=== PATIENT | male | born 1935 | race Caucasian/White ===

== ENCOUNTER 2018-02-03 13:45 | Emergency (ER) | payer MEDICARE, BC ==
[~2018-02-03] VITALS: Ht 188 cm; Wt 106.4 kg
[~2018-02-03 13:45] MED LIST: NEXIUM 40MG40 MG PO
[2018-02-03 13:53] VITALS: TEMP 98.7
[2018-02-03] MEDS ORDERED: SYNTHROID0.075 MG/T PO (14:22)
[2018-02-03] MEDS ORDERED: FLOMAX 0.40.4 MG/CAP PO (14:22)
[2018-02-03] MEDS ORDERED: ATIVAN 0.50.5 MG/TAB PO (14:23)
[2018-02-03] MEDS ORDERED: CELEXA 20MG20 MG/TAB PO (14:23)
[2018-02-03 14:31] LABS: HEMATOCRIT 41.3 % (42.0-52.0); HEMOGLOBIN 14.1 g/dl (13.5-18.0); MEAN CELL VOLUME 97 fl (80.0-100.0); MEAN CORPUSCULAR HEMOGLOBIN 33 pg (27.0-31.0); MEAN CORPUSCULAR HGB CONC 34 g/dl (33.0-37.0); MEAN PLATELET VOLUME 9.3 fl (7.4-10.4); PLATELET COUNT 204 K/mm3 (130-400); RED BLOOD COUNT 4.24 M/mm3 (4.20-5.60)
[2018-02-03 14:53] LABS: ALBUMIN 3.5 gm/dL (3.5-5.0); BILIRUBIN,TOTAL 1.1 mg/dL (0.0-1.0); CREATININE, serum 0.98 mg/dL (0.66-1.25); POTASSIUM 3.9 mmol/L (3.4-5.0); TOTAL PROTEIN 7.1 gm/dL (6.4-8.2)
[2018-02-03 15:04] LABS: C-REACTIVE PROTEIN 15.5 mg/dL (0.0-0.9)
[2018-02-03 15:28] LABS: BAND 19 % (0-10); LYMPHOCYTE 13 % (20.0-51.0); NEUTROPHILS 59 % (42.0-75.2); PLATELET ESTIMATE NORMAL (NORMAL)
[2018-02-03 15:56] LABS: COLLECTION METHOD CLEAN CATCH
[2018-02-03 16:03] LABS: MUCOUS Present /lpf; PH 5 (5-8); SQUAMOUS EPITHELIAL 0-2 /hpf; URINE APPEARANCE Clear; URINE BACTERIA None Seen /hpf; URINE BILIRUBIN Negative (NEGATIVE); URINE BLOOD 1+ (NEGATIVE); URINE COLOR Yellow; URINE GLUCOSE Negative (NEGATIVE); URINE KETONE Negative (NEGATIVE); URINE LEUKOCYTE ESTERASE Negative (NEGATIVE); URINE NITRATE Negative (NEGATIVE); URINE PROTEIN(semi-quant) 1+ (NEGATIVE); URINE UROBILINOGEN Negative (NEGATIVE)
[2018-02-03] MEDS ORDERED: VANCOCIN H125 MG/CAP PO (17:15)
[2018-02-03 17:38] VITALS: BP 120/64; PULSE 82
== END 2018-02-03 17:42 | disposition home or self-care (01) ==
LOC: COL.ER 13:45
PROVIDERS: Emergency Medicine
DX: A04.72 Enterocolitis due to Clostridium difficile, not specified as recurrent (principal); K21.9 Gastro-esophageal reflux disease without esophagitis; N40.0 Benign prostatic hyperplasia without lower urinary tract symptoms; Z98.890 Other specified postprocedural states
CPT/HCPCS: J7030; Q9967

== ENCOUNTER 2018-02-25 07:33 | Emergency (ER) | payer MEDICARE, BC ==
[~2018-02-25] VITALS: Ht 180.3 cm; Wt 106.8 kg
[~2018-02-25 07:33] MED LIST changes: +ATIVAN 0.50.5 MG/TAB PO; +CELEXA 20MG20 MG/TAB PO; +FLOMAX 0.40.4 MG/CAP PO; +SYNTHROID0.075 MG/T PO; +VANCOCIN H125 MG/CAP PO
[2018-02-25 08:17] LABS: HEMATOCRIT 44.9 % (42.0-52.0); MEAN CELL VOLUME 97 fl (80.0-100.0); MEAN CORPUSCULAR HEMOGLOBIN 32 pg (27.0-31.0); MEAN CORPUSCULAR HGB CONC 33 g/dl (33.0-37.0); MEAN PLATELET VOLUME 9.5 fl (7.4-10.4); PLATELET COUNT 246 K/mm3 (130-400); RED BLOOD COUNT 4.63 M/mm3 (4.20-5.60); REDCELL DISTRIBUTION WIDTH-CV 13.7 % (11.5-14.5)
[2018-02-25 08:38] LABS: BILIRUBIN,TOTAL 1.4 mg/dL (0.0-1.0); C-REACTIVE PROTEIN 0.8 mg/dL (0.0-0.9); CALCIUM 9.3 mg/dL (8.4-10.2); CREATININE, serum 1.03 mg/dL (0.66-1.25); POTASSIUM 3.8 mmol/L (3.4-5.0); TOTAL PROTEIN 7.9 gm/dL (6.4-8.2)
[2018-02-25 08:52] LABS: BAND 1 % (0-10); EOSINOPHIL 1 % (0-4); LYMPHOCYTE 19 % (20.0-51.0); NEUTROPHILS 69 % (42.0-75.2); PLATELET ESTIMATE NORMAL (NORMAL)
[2018-02-25 09:26] LABS: COLLECTION METHOD CLEAN CATCH
[2018-02-25 09:31] LABS: MUCOUS Present /lpf; PH 6 (5-8); SQUAMOUS EPITHELIAL None Seen /hpf; URINE APPEARANCE Clear; URINE BACTERIA None Seen /hpf; URINE BILIRUBIN Negative (NEGATIVE); URINE BLOOD 1+ (NEGATIVE); URINE COLOR Yellow; URINE GLUCOSE Negative (NEGATIVE); URINE KETONE Negative (NEGATIVE); URINE LEUKOCYTE ESTERASE Negative (NEGATIVE); URINE NITRATE Negative (NEGATIVE); URINE PROTEIN(semi-quant) Negative (NEGATIVE); URINE UROBILINOGEN Negative (NEGATIVE)
[2018-02-25] MEDS ORDERED: CIPRO 500MG TA500 MG PO (09:52)
[2018-02-25 10:20] VITALS: BP 151/86; PULSE 68; TEMP 96.7
== END 2018-02-25 10:20 | disposition home or self-care (01) ==
LOC: COL.ER 07:33
PROVIDERS: Emergency Medicine
DX: B37.49 Other urogenital candidiasis (principal)

== ENCOUNTER 2018-02-26 04:40 | Inpatient (IN) | payer MEDICARE, BC ==
[~2018-02-26] VITALS: Ht 180.3 cm; Wt 103.6 kg
[2018-02-26] VITALS (21 sets, daily range): BP systolic 86–146; BP diastolic 47–74; PULSE 72–88; TEMP 97.1–98.8
[~2018-02-26 04:40] MED LIST changes: +CIPRO 500MG TA500 MG PO
[2018-02-26 05:09] LABS: ARTERIAL BLD GAS O2 SATURATION 93.5 % (92-100); ARTERIAL BLD GAS TCO2 CT 20.4; ARTERIAL BLOOD GAS BASE EXCESS -7.6 (-2-2); ARTERIAL BLOOD GAS HCO3 19.1 meq/L (22-26); ARTERIAL BLOOD GAS PO2 81.8 mmHg (80-100); ARTERIAL BLOOD GAS pH 7.27 (7.35-7.45)
[2018-02-26 05:15] LABS: HEMATOCRIT 44.9 % (42.0-52.0); MEAN CELL VOLUME 98 fl (80.0-100.0); MEAN CORPUSCULAR HEMOGLOBIN 33 pg (27.0-31.0); MEAN CORPUSCULAR HGB CONC 33 g/dl (33.0-37.0); MEAN PLATELET VOLUME 9.4 fl (7.4-10.4); PLATELET COUNT 221 K/mm3 (130-400); RED BLOOD COUNT 4.59 M/mm3 (4.20-5.60); REDCELL DISTRIBUTION WIDTH-CV 13.6 % (11.5-14.5)
[2018-02-26 05:31] LABS: ALANINE AMINOTRANSFERASE 23 U/L (21-72); ALBUMIN 3.7 gm/dL (3.5-5.0); ALCOHOL(ethanol),MEDICAL 268 mg/dL; ALKALINE PHOSPHATASE 96 U/L (50-136); ANION GAP 10 mmol/L (7-16); AST,SGOT 27 U/L (15-37); BILIRUBIN,TOTAL 1.1 mg/dL (0.0-1.0); BLOOD UREA NITROGEN 17 mg/dL (9-20); CALCIUM 8.4 mg/dL (8.4-10.2); CARBON DIOXIDE 21 mmol/L (22-30); CHLORIDE 106 mmol/L (98-107); CREATININE, serum 1.07 mg/dL (0.66-1.25); GLUCOSE 133 mg/dL (74-106); POTASSIUM 3.9 mmol/L (3.4-5.0); SODIUM 137 mmol/L (137-145); TOTAL PROTEIN 7.3 gm/dL (6.4-8.2)
[2018-02-26 05:32] LABS: ACETAMINOPHEN < 10 ug/mL (10-30); SALICYLATE < 1.0 mg/dL
[2018-02-26 05:35] LABS: INR 1.1 (0.8-3.0)
[2018-02-26 05:38] LABS: PARTIAL THROMBOPLASTIN TIME 31.1 SECONDS (26.0-37.0)
[2018-02-26 05:43] LABS: BAND 19 % (0-10); EOSINOPHIL 1 % (0-4); LYMPHOCYTE 16 % (20.0-51.0); NEUTROPHILS 49 % (42.0-75.2)
[2018-02-26 05:44] LABS: ANISOCYTOSIS 1+; PLATELET ESTIMATE NORMAL (NORMAL); POIKILOCYTOSIS 1+
[2018-02-26 05:45] LABS: TEAR DROP CELLS 1+
[2018-02-26 05:49] LABS: ARTERIAL BLD GAS O2 SATURATION 91.1 % (92-100); ARTERIAL BLD GAS TCO2 CT 18.7; ARTERIAL BLOOD GAS BASE EXCESS -7.9 (-2-2); ARTERIAL BLOOD GAS HCO3 17.6 meq/L (22-26); ARTERIAL BLOOD GAS PCO2 36.3 mmHg (35-45); ARTERIAL BLOOD GAS PO2 69.7 mmHg (80-100)
[2018-02-26 05:59] LABS: TRICYCLIC ANTIDEPRESS URINE NEGATIVE
--- NOTE | 2018-02-26 10:15 | NUR ---
Pt arrived to room 357 from ED. He is drowsy but arousable. He is oriented to his name and that he is in the hospital. He falls asleep quickly when trying to talk. When awake he is pleasant and cooperative. Pt has 2 IV sites, left and right hand. Both are free of complications. Resp. are even and unlabored on 2L O2 per oxymask. Cont. pulse ox applied, pt sats are 97-99% on 2L. Pt is a heavy 2x assist to the commode, able to urinate at this time. Medications/allergies/pharm reviewed with pt's significant other, Zoila, and nephew. Pt is now sleeping soundly, family at bedside. Suicide precautions in place. 1:[address]
--- NOTE | 2018-02-26 11:04 | NUR ---
Amortization Schedule Clerk here at this time. Family continues to be at bedside.
--- NOTE | 2018-02-26 11:33 | NUR ---
Pt is awake and alert, resting comforatbly, conversing with family. He remains calm and cooperative. Drinking water without difficulty.
--- NOTE | 2018-02-26 11:51 | NUR ---
Pt up walking with Eduardo, PT.
--- NOTE | 2018-02-26 12:14 | NUR ---
Pt taken off O2 to work with PT. Pt 95% afterwards, O2 left off at this time. Cont. pulse ox remains in place, sats between 93-95% on room air. Family at bedside.
--- NOTE | 2018-02-26 12:43 | NUR ---
Pt ate 100% of meal without diffculty.
--- NOTE | 2018-02-26 13:24 | NUR ---
Plan to return home with spouse as caregiver Zoila also DPOA. Met with family in room and at s. Family strongly decline facility placement. Would like home health services with [facility]. PT is reports to use a walker daily and hearing devices. Obtains RX from [facility], PCP is Dr. Alex. Denies any other DME. Denies any diff/w medications. Action: JACKELYN faxed referral to [facility] for continuity of care. JACKELYN will continue to follow if additional needs are identified.
--- NOTE | 2018-02-26 15:36 | NUR ---
Significant other, Zoila, left at this time. 1:1 sitter remains, pt states he wants to try to sleep. Pt remains on room air, sats remain in the low 90s. Bed alarm on.
--- NOTE | 2018-02-26 16:13 | NUR ---
Pt up to the restroom, voided without diffculty. Pt accidently pulled out saline lock to left hand with transfer, catheter tip intact. Pt repostioned back in bed. Water offered and accepted.
--- NOTE | 2018-02-26 17:30 | NUR ---
Pt to the restroom, repositioned back in bed. Pt then stating he is having pain at the "tip of my penis." Pt reports burning with urinating and continued burning after completetion. Pt given PRN tylenol but he states "you have got to do something else." Dr. Conner notified, order for pyridium obtained and given. Family at bedside.
--- NOTE | 2018-02-26 18:29 | NUR ---
Pt to restroom at this time, voided without difficulty. Pt states he is still having pain in his penis and when he urinates but it "might feel a little better."
--- NOTE | 2018-02-26 19:15 | NUR ---
Anahy DOBBINS called regarding pts pain 12/05 and has not slept for 3-4 days orders for Dilaudid and Melatonin-
--- NOTE | 2018-02-26 19:50 | NUR ---
Initial shift assessment done- family leaving for home at this time- has close friends neighbor who is staying with pt for awhile tonight. Patient is alert/oriented, very pleasant- states pain is 10/10, has not slept for 3-4 days- states pain is sharp/penis/scrotum-more of a deep pain. Lung sounds decreased throughout- denies any SOB. No edema. 02 sats 93% on room air. IV fluids of NS at 125cc/hr-after this bag completed will be INT. Drinking water/eating without problems- Assisted with urinal in bed- voided 150cc yellow urine. Safety precautions in place- this nurse at bedside per policy- pt observed at all times-
--- NOTE | 2018-02-26 20:08 | NUR ---
Kali barrera given for pain around 1920 pt states pain is easing up a "little", resting quietly in bed.
--- NOTE | 2018-02-26 20:45 | NUR ---
Neighbor has left now for the night- pt did void 100cc in the urinal with assist- lights off- door closed , pt resting quietly- continues with constsant observation- nurse in room with pt
--- NOTE | 2018-02-26 23:15 | NUR ---
Scarlett DOBBINS call regarding pt not sleeping for more than 30 minutes at a time- Dilaudid is helping "some" but still rates pain 10/10- order for Dilaudid dose to be increased-
--- NOTE | 2018-02-26 23:35 | NUR ---
Up to bathroom with walker and assist- somewhat unsteady on feet- voiding dark/orange colored urine. Back to bed- would like to sit at edge of bed for awhile-- given some strawberry ice cream per request.
[2018-02-27] VITALS (10 sets, daily range): BP systolic 122–139; BP diastolic 52–71; PULSE 71–88; TEMP 97.1–98.8
--- NOTE | 2018-02-27 00:02 | NUR ---
back to bed, Dilaudid IV given for pain---- pt sound asleep within 5min of pain meds-
--- NOTE | 2018-02-27 02:15 | NUR ---
Awake,wanting to sit at the edge of the bed- states he was dreaming, states he feels like he is "losing his mind" - tried to get pt to explain - Pt very [place] so some difficulty with comminicating-- states his thoughts are not "together"-- talked with pt for a good hour about how he is feling- talked alot about his physical issues that are upsetting to him-states the past 2 weeks have been hard, pain/ diarrhea/weakness/a couple falls/-- sates his mind has been 'cloudy"-encouragement given-
--- NOTE | 2018-02-27 03:00 | NUR ---
Helped up to bathroom with walker- slow but steady,, voiding frequent small amounts of urine--back to bed, sitting on edge of bed- states he has not slept for the past 3-4 nights-- pt glad he did get the past 2 hours of sleep
--- NOTE | 2018-02-27 03:55 | NUR ---
Back to bed- Dilaudid 1 mg iv given for pain- states the pain does go away for a short time but always " comes back"-- pt immediately fell asleep after the Dilaudid given
--- NOTE | 2018-02-27 06:28 | NUR ---
Pt has been sleeping since Dilaudid was given at 0400- has repositioned self in bed- turned on his side-- did wake for just a few minutes to take a drink of water- back to sleep.
[2018-02-27 07:27] LABS: CALCIUM 8.9 mg/dL (8.4-10.2); CREATININE, serum 0.93 mg/dL (0.66-1.25); POTASSIUM 4.1 mmol/L (3.4-5.0)
[2018-02-27 07:28] LABS: BASO % 0.3 % (0.0-2.0); EOS # 0.1 (0.0-0.7); EOS % 0.5 % (0-4.0); GRAN # 6.7 (1.4-6.5); HEMATOCRIT 42.2 % (42.0-52.0); HEMOGLOBIN 14.3 g/dl (13.5-18.0); LYMPH # 1.1 (1.2-3.4); LYMPH % 11.9 % (20.0-51.0); MEAN CELL VOLUME 97 fl (80.0-100.0); MEAN CORPUSCULAR HEMOGLOBIN 33 pg (27.0-31.0); MEAN CORPUSCULAR HGB CONC 34 g/dl (33.0-37.0); MONO # 1.2 (0.1-0.6); MONO % 13.3 % (1.7-9.3); PLATELET COUNT 235 K/mm3 (130-400); RED BLOOD COUNT 4.35 M/mm3 (4.20-5.60); REDCELL DISTRIBUTION WIDTH-CV 13.5 % (11.5-14.5)
--- NOTE | 2018-02-27 07:30 | NUR ---
Bedside report received from JAMES Villasenor. Patient is awake and alert at this time. Patient states he is having pain at a 10/10 at this time. Patient is assisted to bathroom by Jacklyn. Patient mood is positive. Will continue to monitor.
--- NOTE | 2018-02-27 08:09 | NUR ---
Patient assessment complete. Patient is alert and oriented at this time. Patient sitting at edge of bed. When asked if he is having any thoughts of harming himself patient states "I may be having thoughts like that" and "it's all messed up in there," gesturing at his head. Will continue to monitor.
--- NOTE | 2018-02-27 10:00 | NUR ---
Some patient tremors noted at rest in bilateral hands. Patient also has some difficulty walking, featuring a shuffling gait.
--- NOTE | 2018-02-27 11:15 | NUR ---
SW attended clinical rounds. Urology and psychiatry have been consulted. SW to continue to follow.
--- NOTE | 2018-02-27 11:27 | NUR ---
Initial visit; Patient and his thanked Drive In Waiter/Waitress for looking in on him and keeping him in her prayers.
--- NOTE | 2018-02-27 11:59 | NUR ---
Patient resting in bed. No acute changes. Patient affect is positive. Family friend is at the bedside. Patient ambulates in hallway with this nurse and PT. Will continue to monitor.
--- NOTE | 2018-02-27 17:39 | NUR ---
Patient resting in bed. Friends at bedside. Patient has eaten dinner. Patient talks and smiles with his company. Will continue to monitor.
--- NOTE | 2018-02-27 19:20 | NUR ---
Bedside report given to JAMES Goss.
--- NOTE | 2018-02-27 20:07 | NUR ---
Friend Angel called. Patient gave verbal consent to speak with Angel. Angel would like to know how patient is doing. Resting in bed at this time. Stated patient nickname is Buzz. States will call later to check on patient. Patient resting in bed at this time. Denies needs. Stat lock replaced. Call light in reach. Sitter Esthela SCHMIDT in room.
--- NOTE | 2018-02-27 21:06 | NUR ---
Resting in bed. Assessment complete. Lungs clear. Pulses strong. Reports 7/10 back pain at this time. Alert and orientated. Denies needs. Will provide PRN pain medication. Call light in reach. Sitter in room with patient.
--- NOTE | 2018-02-27 21:22 | NUR ---
Resting in bed. Repositioned to left side. Reports soreness on lower back coccxy area. Off buttom at this time. FLOTATION TENDER in room with patient.
[2018-02-28] VITALS (13 sets, daily range): BP systolic 128–159; BP diastolic 58–76; PULSE 72–83; TEMP 97.3–98.4
--- NOTE | 2018-02-28 01:25 | NUR ---
Awake requesting pain medication. Too early to give. Educated patient. Will wait til time due. DORMITORY KEEPER at bedside.
--- NOTE | 2018-02-28 01:28 | NUR ---
Provided PRN pain medication. Resting in bed. FIELD SUPPORT REP at bedside.
--- NOTE | 2018-02-28 04:37 | NUR ---
Resting in bed asleep. TOOL CLERK at bedside.
--- NOTE | 2018-02-28 05:23 | NUR ---
Awake in bed for vital signs. Denies needs. Calm. Alert and orientated. ELECTROCARDIOGRAPH OPERATOR at bedside.
--- NOTE | 2018-02-28 05:36 | NUR ---
CLAIMS SERVICE ADJUSTOR at bedside. Repositioned. Calm. Alert and orientated.
--- NOTE | 2018-02-28 06:09 | NUR ---
Reports back and groin pain with headache. Given PRN percocet. SUPERVISOR PAINT DEPARTMENT at bedside.
--- NOTE | 2018-02-28 06:30 | NUR ---
Uneventful night. Slept well throughout night. Angel, friend called this AM for update and to tell patient good morning. Will relay message. Asleep at this time. FEATHEREDGER AND REDUCER MACHINE at bedside.
--- NOTE | 2018-02-28 07:20 | NUR ---
Report given to JAMES Bhandari. Resting in bed watching television with Rupal at bedside. MEDICAL STAFF SPECIALIST sitting with patient in doorway.
--- NOTE | 2018-02-28 08:13 | NUR ---
Pt states no longer wishes to take own life. Milling Machine Tender notifed.
--- NOTE | 2018-02-28 09:00 | NUR ---
Additional Suicide Precautions initiated that were not in place upon arrival, dining services notified of only plastic utensils, all hazardous lines, tubes and cords removed from room. Sitter and girlfriend at bedside.
--- NOTE | 2018-02-28 15:34 | NUR ---
JACKELYN met with the patient and patient's DPOA-HC, Zoila, to discuss the Psychiatrist's recommendation of inpatient psych treatment. The patient and patient's DPOA-HC report that they would be agreeable to this plan. JACKELYN then discussed the inpatient psych treatment facilities around [place]. JACKELYN has faxed a referral to the [facility] Unit at [facility] in [place] and [facility]. Jenise, at the [facility], reports that they are interested in taking the patient and that she will follow up with JACKELYN on Sunday for an update. JACKELYN still awaiting [facility]'s screening and will continue to follow.
--- NOTE | 2018-02-28 18:22 | NUR ---
Air mattress provided for pt d/t discomfort with bed
--- NOTE | 2018-02-28 19:27 | NUR ---
Report received from JAMES Bhandari. Resting in recliner with visitors at bedside.
--- NOTE | 2018-02-28 19:28 | NUR ---
Assisted to bed by FOOD AND DRUG RESEARCH SCIENTIST. Visitor at bedside.
--- NOTE | 2018-02-28 20:06 | NUR ---
Resting in bed. SHINGLE SHEARING MACHINE OPERATOR at bedside. Assessment complete. Lungs clear. Alert and orientated. No edema noted. Groin red. All cords possible removed from room. Chau gown on. Denies needs. Denies pain. Call light in reach.
--- NOTE | 2018-02-28 22:30 | NUR ---
Earlier in shift patient noticed to have telemetry on. Educated sitting to closely watch patient until order received to remove. Spoke with DOROTHY Plummer okay to d/c telemetry. Telemetry removed. Pt alert and orientated. Resting in bed. PUBLIC HEALTH ENGINEER at bedside.
[2018-03-01] VITALS (44 sets, daily range): BP systolic 95–155; BP diastolic 58–90; PULSE 74–104; TEMP 97.3–98.5
--- NOTE | 2018-03-01 | NUR ---
Resting in bed. Sitter at bedside.
--- NOTE | 2018-03-01 01:00 | NUR ---
Assist patient upwards in bed. Denies needs. Offered water. Sitter at bedside.
--- NOTE | 2018-03-01 02:00 | NUR ---
Resting in bed asleep. Sitter at bedside.
--- NOTE | 2018-03-01 04:31 | NUR ---
Sitting with patient at this time. Resting in bed asleep.
--- NOTE | 2018-03-01 05:00 | NUR ---
Up to restroom for bowel movement and returned to bed. Zepeda emptied. Denies needs at this time. Sitter at bedside.
--- NOTE | 2018-03-01 05:30 | NUR ---
Resting in bed with Rupal, girlfriend at bedside. Morning cares provided by Rupal at patient preference. Denies needs. Staff at bedside.
--- NOTE | 2018-03-01 06:18 | NUR ---
Visitor at bedside, reading a morning prayer with patient. Sitter at bedside.
--- NOTE | 2018-03-01 06:21 | NUR ---
Uneventful night. Did well. Sitter at bedside throughout shift. Visitor Rupal at bedside, along with sitter at this time.
[2018-03-01 06:54] LABS: BASO % 0.3 % (0.0-2.0); EOS # 0.2 (0.0-0.7); EOS % 2.4 % (0-4.0); GRAN # 6.5 (1.4-6.5); HEMATOCRIT 42.3 % (42.0-52.0); HEMOGLOBIN 14.2 g/dl (13.5-18.0); LYMPH # 1.1 (1.2-3.4); LYMPH % 12.2 % (20.0-51.0); MEAN CELL VOLUME 97 fl (80.0-100.0); MEAN CORPUSCULAR HEMOGLOBIN 33 pg (27.0-31.0); MEAN CORPUSCULAR HGB CONC 34 g/dl (33.0-37.0); MEAN PLATELET VOLUME 9.8 fl (7.4-10.4); MONO # 0.9 (0.1-0.6); MONO % 9.7 % (1.7-9.3); PLATELET COUNT 217 K/mm3 (130-400); RED BLOOD COUNT 4.36 M/mm3 (4.20-5.60); REDCELL DISTRIBUTION WIDTH-CV 13.6 % (11.5-14.5)
[2018-03-01 07:08] LABS: CALCIUM 9.3 mg/dL (8.4-10.2); CREATININE, serum 0.89 mg/dL (0.66-1.25)
--- NOTE | 2018-03-01 07:38 | NUR ---
report from piyush RAMIREZ. at bedside. Kassandra SCHMIDT sitter at door.
--- NOTE | 2018-03-01 07:39 | NUR ---
pt sleeping at this time.
--- NOTE | 2018-03-01 10:28 | NUR ---
PT UP TO RECLINER. PT HAS BEEN NPO PLANNING ON TURP LATER TODAY WITH DR. STOUT. CONTINUES TO HAVE 1:1 CONTINUAL OBSERVATION. AT BEDSIDE WITH OTHER FAMLILY MEMBERS AT THIS TIME. THERAPY IN TO WORK WITH PATIENT THIS AM.
--- NOTE | 2018-03-01 11:51 | NUR ---
PT SITTING UP IN CHAIR VISITING WITH .
--- NOTE | 2018-03-01 13:57 | NUR ---
PT TO SURGERY PER BED WITH
--- NOTE | 2018-03-01 16:50 | NUR ---
PT TO ROOM 357 BY BED WITH REPORT FROM DYLAN @ 3005. PT SETTLED TO ROOM. PT DENIES SUICIDAL IDEATIONS. 3 DALILA SEGURA WITH CBI Renetta ZHU
--- NOTE | 2018-03-01 19:19 | NUR ---
Report received from Jake. Pt resting in bed comfortably alert and oriented. Pt c/o pain and agreed to take pain med. Call light in reach.
--- NOTE | 2018-03-01 20:11 | NUR ---
Pt c/o 11/05 pain and asked for pain med. Call light in reach. Pt's girlfriend at the bedside. She's planning to stay over night.
--- NOTE | 2018-03-01 20:41 | NUR ---
Sitter at the front door and pt's at the bedside. Pt resting in bed comfortably. Call light in reach.
--- NOTE | 2018-03-01 21:27 | NUR ---
Visit attempted and pt sleeping soundly in bed. Call light in reach. at the bedside.
--- NOTE | 2018-03-01 22:22 | NUR ---
Visit attempted and pt sleeping soundly in bed. Call light in reach.
--- NOTE | 2018-03-01 23:01 | NUR ---
Visit attempted and pt sleeping soundly in bed. Pt's sleeping in chair. Sitter watching pt at the front door. Call light in reach.
--- NOTE | 2018-03-01 23:50 | NUR ---
Visit attempted and pt sleeping soundly in bed. Call light in reach.
[2018-03-02] VITALS (54 sets, daily range): BP systolic 95–134; BP diastolic 52–79; PULSE 73–88; TEMP 97.5–98.6
--- NOTE | 2018-03-02 01:50 | NUR ---
Pt woke up and c/o pain in groin area. Call light in reach.
--- NOTE | 2018-03-02 02:43 | NUR ---
Visit attempted and pt sleeping soundly in bed. Call light in reach. Pt's sleeping in chair in rm. Sitter at the front door.
--- NOTE | 2018-03-02 06:09 | NUR ---
Pt awake alert and oriented. Pt denied pain. Pt's at the bedside. Call light in reach.
--- NOTE | 2018-03-02 08:55 | NUR ---
Pt is awake and A/Ox4, sitting up in bed. Sig. other at bedside. Pt does report pain to penis, rates pain a 8/10 on faces scale. Pt was given PRN percocet for this. IVF are infusing without difficulty. CBI infusing without difficult into johnson, clear yellow urine noted. Hygiene provided at this time. Reposistioned in bed.
[2018-03-02 09:01] LABS: BASO % 0.2 % (0.0-2.0); GRAN % 84.2 % (42.2-75.2); HEMATOCRIT 41.1 % (42.0-52.0); HEMOGLOBIN 13.5 g/dl (13.5-18.0); LYMPH # 0.8 (1.2-3.4); LYMPH % 6.9 % (20.0-51.0); MEAN CELL VOLUME 99 fl (80.0-100.0); MEAN CORPUSCULAR HEMOGLOBIN 33 pg (27.0-31.0); MEAN CORPUSCULAR HGB CONC 33 g/dl (33.0-37.0); MEAN PLATELET VOLUME 9.6 fl (7.4-10.4); MONO # 0.9 (0.1-0.6); MONO % 7.5 % (1.7-9.3); PLATELET COUNT 229 K/mm3 (130-400); RED BLOOD COUNT 4.14 M/mm3 (4.20-5.60); REDCELL DISTRIBUTION WIDTH-CV 13.9 % (11.5-14.5)
[2018-03-02 09:13] LABS: CALCIUM 8.9 mg/dL (8.4-10.2)
--- NOTE | 2018-03-02 09:18 | NUR ---
Pt up to chair with PT.
--- NOTE | 2018-03-02 10:39 | NUR ---
Pt is sleeping soundly in chair, friend resting on couch. CBI continues to run without difficulty. 1:1 sitter at bedside.
--- NOTE | 2018-03-02 11:38 | NUR ---
Pt is sitting up in chair. Denies any pain at this time. Visiting with family.
--- NOTE | 2018-03-02 18:16 | NUR ---
Pt is resting quietly in bed, attempting to sleep. CBI continues to run without difficulty. Partner left for home. 1:1 sitter at bedside.
[2018-03-03] VITALS (75 sets, daily range): BP systolic 106–136; BP diastolic 47–89; PULSE 66–81; TEMP 97.5–98.5
--- NOTE | 2018-03-03 04:41 | NUR ---
PT HAD REQUESTED A PAIN PILL AT HS TO ATTEMPT TO HELP HIM SLEEP. PT WAS UNABLE TO SLEEP ABOUT 2 HOURS AFTER HS MEDS AND REQUESTED SOMETHING TO HELP HIM SLEEP. PT RECIEVED A PRN AMBIAN. PT APPEARED TO HAVE SLEPT WELL THROUGH THE NOC. CBI INFUSING WELL WITHOUT ISSUES, URINE RETURN HAS BEEN CLEAR WITH SLIGHT YELLOW/ PINK COLORATION. WILL PRIME AND PULL THIS AM.
--- NOTE | 2018-03-03 06:00 | NUR ---
PT SEGURA WAS PRIMED AND PULLED. 6 CUPS FOR URINE ARE IN PLACE IN BATHROOM. URINAL AT BEDSIDE. BLADDER WAS FILLED WITH APPROX 200CC OF FLUID PRIOR TO PULLING. PT HAD MINIMAL BLEEDING FOR PROCEDURE, TOLERATED WELL. REMINDED PT TO VOID IN URINAL OR IN BATHROOM NOW THAT SEGURA WAS REMOVED. NO NOTED VOID AT THIS TIME. PT AWAKE AND DRINKING WATER. NO C/O PAIN OR NOTED N/V.
[2018-03-03 07:02] LABS: HEMATOCRIT 45.7 % (42.0-52.0); HEMOGLOBIN 14.8 g/dl (13.5-18.0); MEAN CELL VOLUME 101 fl (80.0-100.0); MEAN CORPUSCULAR HEMOGLOBIN 33 pg (27.0-31.0); MEAN CORPUSCULAR HGB CONC 32 g/dl (33.0-37.0); MEAN PLATELET VOLUME 9.4 fl (7.4-10.4); PLATELET COUNT 234 K/mm3 (130-400); RED BLOOD COUNT 4.53 M/mm3 (4.20-5.60); REDCELL DISTRIBUTION WIDTH-CV 14.1 % (11.5-14.5)
[2018-03-03 07:13] LABS: CALCIUM 9.2 mg/dL (8.4-10.2)
--- NOTE | 2018-03-03 08:26 | NUR ---
Assessment complete. Pt back to bed from bathroom, has voided twice since catheter discontinued, urine blood tinged. Pt incontinent of urine as well, bed and gown changed. Pt denies pain or discomfort at this time. IVF's infusing per orders through left wrist site without s/s of complications. PANTOGRAPH II ENGRAVER with pt. No needs reported. Call light in reach.
[2018-03-03 09:09] LABS: BAND 9 % (0-10); EOSINOPHIL 1 % (0-4); LYMPHOCYTE 23 % (20.0-51.0); NEUTROPHILS 58 % (42.0-75.2); PLATELET ESTIMATE NORMAL (NORMAL)
--- NOTE | 2018-03-03 09:21 | NUR ---
Report received from JAMES Wasserman. Pt resting in bed comfortably, but c/o soreness around groin area. Pt agreed to take pain med. Call light in reach.
--- NOTE | 2018-03-03 10:51 | NUR ---
Visit attempted and pt sleeping soundly in bed. Pt's girlfriend at the bedside. Call light in reach.
--- NOTE | 2018-03-03 12:22 | NUR ---
Pt awake and having lunch brought in by friends. Pt denied pain. Call light in reach.
--- NOTE | 2018-03-03 13:47 | NUR ---
Visit attempted and pt sleeping soundly in bed. Call light in reach.
--- NOTE | 2018-03-03 15:24 | NUR ---
Pt talking to pt's visitors in . Pt c/o soreness around groin area and agreed to take pain med. Call light in reach.
--- NOTE | 2018-03-03 18:10 | NUR ---
Visit attempted and pt sleeping soundly in bed. Call light in reach.
--- NOTE | 2018-03-03 19:11 | NUR ---
Report given to JAMES Mullins. Pt sleeping soundly in bed. Call light in reach.
--- NOTE | 2018-03-03 20:30 | NUR ---
Shift assessment complete. Pt resting in bed, awake, a&o, cooperative c cares. Pt reports continued pain/"soreness" to penis bárbara c voiding; PRN pain media developer per request. Pt denies any other c/o. INT patent. 1:1 sitter at bedside. Pt s further needs at this time. Call light in reach, will monitor.
[2018-03-04] VITALS (10 sets, daily range): BP systolic 116–156; BP diastolic 58–77; PULSE 67–91; TEMP 97.4–98.6
--- NOTE | 2018-03-04 07:44 | NUR ---
Pt resting in bed, condition unchanged. Pt observed by 1:1 staff all noc, pt had very few needs. Pain well controlled c PRN pain med. Pt voided several times, clear, pale yellow urine. Pt denies needs at this time. Call light in reach, bed alarm on, 1:1 staff at bedside. Report given to Di RAMIREZ to assume pt cares.
--- NOTE | 2018-03-04 07:53 | NUR ---
PT. IS RESTING IN BED AND SAYS HAVING NECK PAIN; ABLE TO PUT IN HAS ON HEARING AIDES W/SET-UP; HUNGRY AND MEAL HERE AND LITERACY SPECIALIST BROUGHT HOT CHOCOLATE; ORIENTED TO PLACE; DATE AND TIME BUT NOT UNDERSTANDING CANNOT WALK IN HALLS AT THIS TIME BUT WHEN P.T. ARRIVES
--- NOTE | 2018-03-04 08:05 | NUR ---
Sitting up in the bed eating breakfast at this time. No pain or needs reported. The call light is in place and AMI Ho is 1:1 at the bedside. The significant other is at the bedside.
[2018-03-04] MEDS ORDERED: ZOLOFT 50MG50 MG PO (08:25)
[2018-03-04] MEDS ORDERED: COLACE 100100 MG/CAP PO (08:25)
--- NOTE | 2018-03-04 08:58 | NUR ---
Judith, at [facility], reports that they are interested in the patient also. Judith requested updates. JACKELYN faxed and will continue to follow.
[2018-03-04] MEDS ORDERED: TYLENOL 325MG325 MG PO (09:25)
--- NOTE | 2018-03-04 09:28 | NUR ---
pt. is able to push self up in bed to better sitting position for meal; hungry and meal served; S/O at BS; Pt.is able to put in Hearing Aides, and feed himself with set-up and cues. Pt.is tolerating bedrest.
[2018-03-04] MEDS ORDERED: PERCOCET 325 MG1 TA2 PO (09:32)
[2018-03-04] MEDS ORDERED: FLORASTOR250 MG PO (09:35)
[2018-03-04] MEDS ORDERED: AMBIEN 5MG TABLE5 MG PO (09:35)
[2018-03-04] MEDS ORDERED: FOLIC ACID 40400 MCG PO (09:43)
[2018-03-04] MEDS ORDERED: THIAMINE 1100 MG/TAB PO (09:43)
--- NOTE | 2018-03-04 09:44 | NUR ---
Jenise, at [facility] [place], reports that they can accept the patient for tomorrow, 03/05. SW has informed the clinical team and the patient's family. SW also informed home housekeeper for secure transpot. SW to continue to follow.
--- NOTE | 2018-03-04 09:49 | NUR ---
PT. CONVERSES WELL W/STAFFING CLERK AT BS; ATTENTIVE AND POSITIVE.
--- NOTE | 2018-03-04 10:00 | NUR ---
DETERMINATION FOR PLACEMENT;PREFERED PLACEMENT IS [place] PER FAMILY. PT. NEEDS FREQUENT CUES AND CONVERSATION TO UNDERSTAND HIS CONDITION HAS IMPROVENTMENT BUT STILL NEEDS INPT. CARES MORE THAN CAN GET HERE.
--- NOTE | 2018-03-04 10:25 | NUR ---
PT. CRYING FOR SHORT TIME BUT BETTER WITH PT. REASSURANCE.
--- NOTE | 2018-03-04 10:30 | NUR ---
PT. COOPERATIVE AND BACK TO BED.
--- NOTE | 2018-03-04 10:49 | NUR ---
TOLERATED AMBULATION IN HALLS
--- NOTE | 2018-03-04 11:00 | NUR ---
PT. FELL TO SLEEP IN BED AFTER WALK.
--- NOTE | 2018-03-04 14:00 | NUR ---
pt. given warmed blanket;siderails up w/seizure precaution pads in place. Coating Mixer Tender at BS
--- NOTE | 2018-03-04 16:32 | NUR ---
No change throughout the day. No pain or needs reported. The girlfriend remains at the bedside for assistance with meals and some ADLs. AMI Ho remains 1:1 at the bedside.
--- NOTE | 2018-03-04 16:56 | NUR ---
pt. to and from br w/fww and multiple cues for direction and safety; SITKA even with hearing aides. Pericares done and WMP to neck; pt. resting comfortably; tipple engineer at BS. Meals ordered.
--- NOTE | 2018-03-04 17:33 | NUR ---
Patient verbalizes neck pain and stiffness. Offered heat pack and now requests PRN pain medication. Otherwise is enjoying a visit with his family.
--- NOTE | 2018-03-04 19:20 | NUR ---
Shift assessment complete. Pt resting in bed, awake, a&o, cooperative c cares. Pt continued c/o abd "soreness" as well as neck pain; provided c warm pack, will give PRN pain med when able. Pt denies other c/o. Continues to void clear yellow urine. Pt denies needs. Call light in reach; 1:1 staff at bedside. Will continue to monitor.
[2018-03-05 00:31] VITALS: BP 152/77; PULSE 81; TEMP 98
[2018-03-05 04:44] VITALS: BP 123/85; PULSE 75; TEMP 97.9
[2018-03-05 07:44] VITALS: BP 132/57; PULSE 83; TEMP 97.8
[2018-03-05 08:00] VITALS: BP 132/57; PULSE 83
--- NOTE | 2018-03-05 08:09 | NUR ---
Assessment completed, alert/oriented, vital sign stable, patient is pleasant and cooperative, he is sitting up in bed eating breakfast at this time, contineus to report some right sided neck pain, heat pack applied and a percocet given, he is scheduled to be transferred to [facility] unit at 0900 this morning, present in the room, patient and family deny other needs or concerns at this time
[2018-03-05 08:37] VITALS: BP 132/57; PULSE 83; TEMP 97.8
--- NOTE | 2018-03-05 08:58 | NUR ---
The patient is to discharge today, 03/05, to the [facility] Unit at [facility] in [place] for inpatient psych. Transportation was set for 0900, via secure transport. SW informed the patient, patient's DPOA-HC, and the N[facility] Unit. They were all in agreeance. JACKELYN also presented and explained the IM form to the patient's DPOA-HC, Zoila. The patient's DPOA-HC verbalized understanding, signed, and she was provided a copy. No additional needs at this time.
--- NOTE | 2018-03-05 09:36 | NUR ---
Patient being transferred to [facility] unit by [facility], present at time of discharge
[2018-04-19] MEDS ORDERED: STOOL SOFTENER100 M2 PO ×2 (09:14)
== END 2018-03-05 09:37 | DRG 987 ==
LOC: COL.ER 04:40 → MEDICAL 08:37
PROVIDERS: Emergency Medicine; Hospitalist; Nurse Practitioner Family; Urology; ADMIT Internal Medicine
PROC: 0VB08ZZ Excision of Prostate, Via Natural or Artificial Opening Endoscopic (ICD-10-PCS; principal; 2018-03-01 13:30)
DX: T51.0X2A Toxic effect of ethanol, intentional self-harm, initial encounter (principal); G92 Toxic encephalopathy; N41.0 Acute prostatitis; N13.8 Other obstructive and reflux uropathy; E87.2 Acidosis; T14.91XA Suicide attempt, initial encounter; Y90.8 Blood alcohol level of 240 mg/100 ml or more; G89.29 Other chronic pain; F06.31 Mood disorder due to known physiological condition with depressive features; N40.1 Benign prostatic hyperplasia with lower urinary tract symptoms; R33.8 Other retention of urine; R09.02 Hypoxemia
CPT/HCPCS: OP; 99223-AI; 99231-AI; 99232-AI; 99239; G0378; G8978-GP; G8979-GP; G8987-GO; G8988-GO; J0690; J1100; J1170; J2270; J2310; J2405; J2704; J3010; J3480; J7030

== ENCOUNTER 2018-04-16 22:00 | Inpatient (IN) | payer MEDICARE, BC ==
[~2018-04-16] VITALS: Ht 177.8 cm; Wt 102.3 kg
[~2018-04-16 22:00] MED LIST changes: -ABILIFY MYCITE2 MG PO; -CENTRUM SILVER1 TAB PO; -CULTURELLE IMM1 EACH PO; -DESYREL 50MG50 MG PO; -NATURE'S BLEND100 M2 PO
[2018-04-16 22:47] LABS: BASO # 0.1 (0.0-0.2); BASO % 0.7 % (0.0-2.0); EOS # 0.1 (0.0-0.7); EOS % 1.3 % (0-4.0); GRAN # 7.3 (1.4-6.5); GRAN % 69.9 % (42.2-75.2); HEMATOCRIT 43.7 % (42.0-52.0); HEMOGLOBIN 14.6 g/dl (13.5-18.0); LYMPH # 1.5 (1.2-3.4); LYMPH % 13.9 % (20.0-51.0); MEAN CELL VOLUME 94 fl (80.0-100.0); MEAN CORPUSCULAR HEMOGLOBIN 32 pg (27.0-31.0); MEAN CORPUSCULAR HGB CONC 33 g/dl (33.0-37.0); MEAN PLATELET VOLUME 9.9 fl (7.4-10.4); MONO # 1.4 (0.1-0.6); MONO % 13.6 % (1.7-9.3); PLATELET COUNT 260 K/mm3 (130-400); RED BLOOD COUNT 4.64 M/mm3 (4.20-5.60); REDCELL DISTRIBUTION WIDTH-CV 14.3 % (11.5-14.5)
[2018-04-16 22:50] LABS: COLLECTION METHOD CLEAN CATCH
[2018-04-16 22:57] LABS: ALANINE AMINOTRANSFERASE 60 U/L (21-72); ALKALINE PHOSPHATASE 128 U/L (50-136); ANION GAP 10 mmol/L (7-16); AST,SGOT 43 U/L (15-37); BLOOD UREA NITROGEN 14 mg/dL (9-20); CALCIUM 9.3 mg/dL (8.4-10.2); CARBON DIOXIDE 22 mmol/L (22-30); CHLORIDE 103 mmol/L (98-107); CREATININE, serum 0.93 mg/dL (0.66-1.25); GLUCOSE 123 mg/dL (74-106); POTASSIUM 3.9 mmol/L (3.4-5.0); SODIUM 136 mmol/L (137-145); TOTAL PROTEIN 8.3 gm/dL (6.4-8.2)
[2018-04-16 23:02] LABS: MUCOUS Present /lpf; PH 5 (5-8); SQUAMOUS EPITHELIAL None Seen /hpf; URINE APPEARANCE Cloudy; URINE BACTERIA None Seen /hpf; URINE BILIRUBIN Negative (NEGATIVE); URINE BLOOD 2+ (NEGATIVE); URINE COLOR Yellow; URINE GLUCOSE Negative (NEGATIVE); URINE KETONE Negative (NEGATIVE); URINE LEUKOCYTE ESTERASE 3+ (NEGATIVE); URINE NITRATE Negative (NEGATIVE); URINE PROTEIN(semi-quant) Negative (NEGATIVE); URINE RBC 20-50 /hpf; URINE UROBILINOGEN Negative (NEGATIVE)
[2018-04-16 23:03] LABS: ACETAMINOPHEN < 10 ug/mL (10-30); ALCOHOL(ethanol),MEDICAL < 10 mg/dL; SALICYLATE < 1.0 mg/dL
[2018-04-16 23:04] LABS: TRICYCLIC ANTIDEPRESS URINE NEGATIVE
[2018-04-16 23:08] LABS: TROPONIN-I < 0.012 ng/mL (0.000-0.035)
[2018-04-16] MEDS ORDERED: ABILIFY MYCITE2 MG PO (23:34)
[2018-04-16] MEDS ORDERED: CENTRUM SILVER1 TAB PO (23:36)
[2018-04-16] MEDS ORDERED: NATURE'S BLEND100 M2 PO (23:36)
[2018-04-16] MEDS ORDERED: DESYREL 50MG50 MG PO (23:38)
[2018-04-16] MEDS ORDERED: CULTURELLE IMM1 EACH PO (23:40)
[2018-04-17] VITALS (40 sets, daily range): BP systolic 109–144; BP diastolic 43–79; PULSE 57–88; TEMP 97.8–98.4
--- NOTE | 2018-04-17 01:50 | NUR ---
Pt arrived to room 354, transferred per stretcher by ED staff. Pt awake, a&o but very KLETSEL DEHE WINTUN. Denies pain or other c/o at this time. Pt long time partner et Rupal SANDERS, at bedside. Pt/partner oriented to room, unit policies et current POC. Questions invited et answered, both verbalize understanding. Pt denies needs. Call light in reach, will continue c admit process.
[2018-04-17 06:54] LABS: BASO # 0.1 (0.0-0.2); BASO % 0.9 % (0.0-2.0); EOS # 0.1 (0.0-0.7); EOS % 1.5 % (0-4.0); GRAN # 5.3 (1.4-6.5); GRAN % 65.6 % (42.2-75.2); HEMATOCRIT 39.6 % (42.0-52.0); HEMOGLOBIN 13.2 g/dl (13.5-18.0); LYMPH # 1.3 (1.2-3.4); LYMPH % 15.5 % (20.0-51.0); MEAN CELL VOLUME 94 fl (80.0-100.0); MEAN CORPUSCULAR HEMOGLOBIN 31 pg (27.0-31.0); MEAN CORPUSCULAR HGB CONC 33 g/dl (33.0-37.0); MEAN PLATELET VOLUME 10.4 fl (7.4-10.4); MONO # 1.3 (0.1-0.6); MONO % 15.9 % (1.7-9.3); PLATELET COUNT 265 K/mm3 (130-400); REDCELL DISTRIBUTION WIDTH-CV 14.3 % (11.5-14.5)
[2018-04-17 07:12] LABS: CALCIUM 8.9 mg/dL (8.4-10.2); CREATININE, serum 0.84 mg/dL (0.66-1.25); POTASSIUM 3.8 mmol/L (3.4-5.0)
--- NOTE | 2018-04-17 09:23 | NUR ---
Patient resting in bed with at bedside. She reports that patient is voiding better since start of antibiotics and IV fluids. He reports pain in lower groin area. Unable to rate secondary to not understanding. Patient is alert and oriented x 3. Skin hot/dry; flush in color. Lungs CTA with resp even and unlabored on room air. HR strong and regular. Abd rounded with bowel sounds x 4 quads. PPP. No pedal edema noted. Patient has reported his bottom is burning. Checked coccyx area no reddness or open areas noted. Groin area without any rash.
--- NOTE | 2018-04-17 13:23 | NUR ---
SW met with patient and significant other, Zoila ([phone]), about discharge plans. Patient lives at home with Zoila. His PCP is Dr Simon and he obtains prescriptions from [facility]. Zoila reports patient does not use home health services and he sometimes uses a walker for ambulation. Patient does have a DPOA and those forms are in EMR. SW addressed the reason for patient hospitalization. Zoila reports patient was admitted to the [facility] in [place] after his previous hospitalization in February and he spent 4 days and 3 nights there. Patient has not followed up with a therapist or counselor due to hard of hearing in a group therapy environment. Zoila reports patient would be better in a one on one setting. Patient reports he does not want to go back to the [facility] or any inpatient psychiatric facility. Zoila and patient report that if patient's pain was under control, patient would feel better. SW will continue to follow and assist with discharge needs.
--- NOTE | 2018-04-17 21:10 | NUR ---
Patient assessed at this time. Denies having pain and discomfort. Hard of hearing. Voices no needs or concerns at this time. NS running at 125 ml/hr to right forearm.
--- NOTE | 2018-04-18 02:07 | NUR ---
Patient assisted to the bathroom with one assist with use of walker. Denied having pain and discomfort. NS running at 125 ml/hr to IV site on right forearm. Continues on Rocephin for UTI per orders. No adverse effects to antibiotic treatmen noted at this time, such as rash, vomiting, and diarrhea. Waiting on urine culture. Resting in bed with eyes closed at this time. Call light is within reach.
[2018-04-18 04:29] VITALS: BP 156/81; PULSE 83; TEMP 97.2
--- NOTE | 2018-04-18 06:34 | NUR ---
Patient woke up around 0530 with increased confusion. Assisted to the bathroom. Kept stating that something was going to happen. This nurse talked with patient for about 30 minutes. Stated that he felt like his significant other was leaving him because he is "too hard to handle." Patient very worried that this nurse would say something and get him in trouble. Asked patient why he thought his significant other would leave him, and patient stated that he had a dream about it. Talked with patient about the last time his significant other was here at the hospital and asked if she treated him any differently. Patient stated that he did not notice any change, that she gave him a hug and kiss before she left, and didn't act any differently. This nurse tried to reassure patient, but keeps stating that he needs to leave. Patient laying in bed at this time. Door open so staff can watch patient. Bed alarm is on.
[2018-04-18 07:33] LABS: BASO # 0.1 (0.0-0.2); BASO % 0.7 % (0.0-2.0); EOS # 0.1 (0.0-0.7); EOS % 1.3 % (0-4.0); GRAN # 6.2 (1.4-6.5); GRAN % 69.2 % (42.2-75.2); HEMATOCRIT 42.2 % (42.0-52.0); HEMOGLOBIN 14.1 g/dl (13.5-18.0); LYMPH # 1.2 (1.2-3.4); LYMPH % 13.8 % (20.0-51.0); MEAN CELL VOLUME 94 fl (80.0-100.0); MEAN CORPUSCULAR HEMOGLOBIN 31 pg (27.0-31.0); MEAN CORPUSCULAR HGB CONC 33 g/dl (33.0-37.0); MEAN PLATELET VOLUME 10.2 fl (7.4-10.4); MONO # 1.3 (0.1-0.6); MONO % 14.6 % (1.7-9.3); PLATELET COUNT 255 K/mm3 (130-400); REDCELL DISTRIBUTION WIDTH-CV 14.5 % (11.5-14.5)
[2018-04-18 07:45] LABS: CALCIUM 9.2 mg/dL (8.4-10.2); CREATININE, serum 0.78 mg/dL (0.66-1.25); POTASSIUM 3.9 mmol/L (3.4-5.0)
[2018-04-18 08:17] VITALS: BP 116/77; PULSE 85; TEMP 98.2
--- NOTE | 2018-04-18 09:00 | NUR ---
Patient assessment completed. Patient is confused and worried about his family. Reassured patient until family arrived at bedside. Laying in bed with NS running at 125mL/hr to IV on R forearm. Patient complains of pain in back and groin area and is continuously grabbing back and groin. No redness or irritation noted, patient refused heat or ice pack. Repositioned patient. Ordering lunch with family, no further needs at this time. Call light within reach, bed alarm on.
--- NOTE | 2018-04-18 10:07 | NUR ---
First visit from the power systems engineer. No needs right now.
--- NOTE | 2018-04-18 11:30 | NUR ---
Pt alert and oriented. Pt spouse at bedside. Pt denies pain or SOB. Pt IV patent and no redness or infiltration noted. Pt assessment completed. Pt has not had any suicidal thoughts reported. Pt converses pleasantly. Pt has call light in reach and denies needs.
[2018-04-18 12:00] VITALS: BP 116/61; PULSE 83; TEMP 98
--- NOTE | 2018-04-18 13:58 | NUR ---
[facility] nurse was assisted with [phone] patient care by [employer] student María Martin and [employer] instructor Tash Goddard RN-.
[2018-04-18 15:46] VITALS: BP 119/54; PULSE 94; TEMP 97.8
--- NOTE | 2018-04-18 19:28 | NUR ---
Pt alert and oriented. Pt spouse reports pt has had some hallucinations of seeing numbers on the floor and wall and masterbation and wanting affection with . Pt's concerned meds may need to be adjusted. Information given to Krysta in report and will notify hospitalist. Pt denies pain or SOB. Pt remains on fall risk precautions and plans to stay the night. Pt has call light in reach and denies needs at this time.
[2018-04-18 20:00] VITALS: BP 133/79; PULSE 79; TEMP 97.3
--- NOTE | 2018-04-18 22:40 | NUR ---
Patient assessed. Denies having pain and discomfort. Assisted to the bathroom. Used walker. Gait unsteady. Significant other is at bedside and planning on staying the night. Patient has been having intermittent confusion, but easily redirected. Significant other reports he has had some visual hallucinations earlier today, but none so far this shift. Denies having burning, pain, and discomfort with urination. Urine is clear and yellow.
[2018-04-19 01:32] VITALS: BP 123/62; PULSE 80; TEMP 98.6
--- NOTE | 2018-04-19 02:38 | NUR ---
Patient resting in bed with eyes closed. NS running at 75 ml/hr to IV site on right FA. Significant other continues to be at bedside. Call light is within reach.
[2018-04-19 03:34] VITALS: BP 118/73; PULSE 79; TEMP 98
--- NOTE | 2018-04-19 07:08 | NUR ---
When patient was woken up around 0530 to go to the bathroom, patient ambulated well with this nurse. Urinated clear yellow urine. Denied having burning, pain, and discomfort with urination. Afterwards, patient kept stating that he was sorry for "wetting the bed." Patient reassured that he did not have an accident and that the bed and he were dry, and that he got to the bathroom in time. Patient continued to repeat that he was sorry and that he was going to we the bed. Assisted back to the bathroom to see if he still had to urinate, but no urine output at that time. Significant other made the comment that he was affraid that he was getting prostate cancer, and that his brother had prostate cancer. Patient was then making the comment that he felt like he was "being punished." This nurse and significant other reassured patient. Requested to lay back down and assisted back to bed. Denied having pain and discomfort, and any other needs at that time. Resting in bed with eyes closed at this time. Significant other remains at bedside. NS continues to run at 75 ml/hr to right forearm.
[2018-04-19 07:33] LABS: BASO # 0.1 (0.0-0.2); BASO % 1.1 % (0.0-2.0); EOS # 0.3 (0.0-0.7); EOS % 3.7 % (0-4.0); GRAN # 4.9 (1.4-6.5); GRAN % 60.2 % (42.2-75.2); HEMATOCRIT 39.3 % (42.0-52.0); HEMOGLOBIN 12.8 g/dl (13.5-18.0); LYMPH # 1.5 (1.2-3.4); LYMPH % 18.4 % (20.0-51.0); MEAN CELL VOLUME 96 fl (80.0-100.0); MEAN CORPUSCULAR HEMOGLOBIN 31 pg (27.0-31.0); MEAN CORPUSCULAR HGB CONC 33 g/dl (33.0-37.0); MEAN PLATELET VOLUME 10.2 fl (7.4-10.4); MONO # 1.3 (0.1-0.6); MONO % 15.9 % (1.7-9.3); PLATELET COUNT 242 K/mm3 (130-400); REDCELL DISTRIBUTION WIDTH-CV 14.8 % (11.5-14.5)
--- NOTE | 2018-04-19 07:33 | NUR ---
Patient is resting in bed, eyes are closed, signifigant other is at bedside. Off going staff reports that patient has increased confusion when woken from sleep. Will allow patient to wake independently. Call light is within reach.
[2018-04-19 07:49] LABS: CREATININE, serum 0.91 mg/dL (0.66-1.25); POTASSIUM 3.9 mmol/L (3.4-5.0)
[2018-04-19 08:00] VITALS: BP 118/64; PULSE 84; TEMP 97
--- NOTE | 2018-04-19 08:41 | NUR ---
Patient is awake, assisted to bathroom. Resistant to getting back to bed and is slightly agitated. Susanna rodriguez spoke with this nurse regarding concerns she had from last night and today. She reports that last night he was experiencing visual disturbances such as seeing numbers on the floor and requesting for her to go look at the numbers herself. She stated that he was paranoid about wetting the bed and he was going to be in trouble for doing so when in fact he was not incontinent and bed was dry. He fears he has prostate cance which susanna rodriguez has reported this was nothing new. She said that since his last hospitalization he has not wanting to be intimate with her and last night he was "nudging" her breast and touching himself. She reports that a day or so prior to entering the hospital he was started on abilify and states the behaviors have manifested since then. Requests to hold off on abilify for this morning until provider is seen.
[2018-04-19] MEDS ORDERED: FLOMAX 0.40.4 MG/CAP PO (09:13)
[2018-04-19] MEDS ORDERED: ZOLOFT 100MG100 MG PO (09:14)
[2018-04-19] MEDS ORDERED: MIRALAX PA17 GM/Dose PO (09:14)
[2018-04-19] MEDS ORDERED: STOOL SOFTENER100 M2 PO (09:14)
--- NOTE | 2018-04-19 09:48 | NUR ---
JACKELYN met with patient's significant other, Rupal, about patient discharging today. Rupal reports she is interested in home health nursing to help out a few times a week with his care. JACKELYN reported she can send a referral. Rupal chose [facility]. JACKELYN contacted Amaya with [facility] and faxed a referral.
--- NOTE | 2018-04-19 13:05 | NUR ---
JACKELYN faxed discharge orders to [facility]. Patient will be seen tomorrow.
--- NOTE | 2018-04-19 13:41 | NUR ---
Primary nurse was assisted with [phone] patient care by [employer] student María Martin and [employer] instructor Tash Goddard RN-.
== END 2018-04-19 13:20 | disposition home health service (06) | DRG 885 ==
LOC: COL.ER 22:00 → MEDICAL 04-17 00:42
PROVIDERS: Nurse Practitioner; Nurse Practitioner Family; Physician Assistant; ADMIT Hospitalist
DX: F33.1 Major depressive disorder, recurrent, moderate (principal); F05 Delirium due to known physiological condition; R45.851 Suicidal ideations; G93.40 Encephalopathy, unspecified; F03.90 Unspecified dementia, unspecified severity, without behavioral disturbance, psychotic disturbance, mood disturbance, and anxiety; N40.1 Benign prostatic hyperplasia with lower urinary tract symptoms; R33.8 Other retention of urine; E03.9 Hypothyroidism, unspecified; G89.29 Other chronic pain
CPT/HCPCS: 99222-AI; 99231-AI; 99239; A4216; J0696; J1650; J2270; J7030

== ENCOUNTER → 2018-04-16 | Outpatient (CLI) | payer MEDICARE, BC ==
[~2018-04-16] MED LIST changes: +ABILIFY MYCITE2 MG PO; +AMBIEN 5MG TABLE5 MG PO; +CENTRUM SILVER1 TAB PO; +COLACE 100100 MG/CAP PO; +CULTURELLE IMM1 EACH PO; +DESYREL 50MG50 MG PO; +FLORASTOR250 MG PO; +FOLIC ACID 40400 MCG PO; +NATURE'S BLEND100 M2 PO; +PERCOCET 325 MG1 TA2 PO; +THIAMINE 1100 MG/TAB PO; +TYLENOL 325MG325 MG PO; +ZOLOFT 50MG50 MG PO
== END ==
LOC: COL.RAD 15:10
DX: I67.82 Cerebral ischemia (principal); G31.9 Degenerative disease of nervous system, unspecified; H70.91 Unspecified mastoiditis, right ear; R41.82 Altered mental status, unspecified

== ENCOUNTER 2018-04-27 00:55 | Inpatient (IN) | payer MEDICARE, BC ==
[2018-04-27] VITALS (7 sets, daily range): BP systolic 102–134; BP diastolic 42–60; PULSE 72–84; TEMP 97.5–98.3
[~2018-04-27] VITALS: Ht 177.8 cm; Wt 100.0 kg
[~2018-04-27 00:55] MED LIST changes: +ABILIFY MYCITE2 MG PO; +CENTRUM SILVER1 TAB PO; +CULTURELLE IMM1 EACH PO; +DESYREL 50MG50 MG PO; +MIRALAX PA17 GM/Dose PO; +NATURE'S BLEND100 M2 PO; +STOOL SOFTENER100 M2 PO; +ZOLOFT 100MG100 MG PO
[2018-04-27] MEDS ORDERED: VANCOCIN H125 MG/CAP PO (01:11)
[2018-04-27] MEDS ORDERED: ROXICODONE 55 MG/TAB PO (01:18)
[2018-04-27 01:23] LABS: HEMATOCRIT 40.2 % (42.0-52.0); HEMOGLOBIN 13.3 g/dl (13.5-18.0); MEAN CELL VOLUME 95 fl (80.0-100.0); MEAN CORPUSCULAR HEMOGLOBIN 32 pg (27.0-31.0); MEAN CORPUSCULAR HGB CONC 33 g/dl (33.0-37.0); MEAN PLATELET VOLUME 9.7 fl (7.4-10.4); PLATELET COUNT 209 K/mm3 (130-400); RED BLOOD COUNT 4.22 M/mm3 (4.20-5.60); REDCELL DISTRIBUTION WIDTH-CV 14.9 % (11.5-14.5)
[2018-04-27 01:39] LABS: ALANINE AMINOTRANSFERASE 32 U/L (21-72); ALBUMIN 3.5 gm/dL (3.5-5.0); ALKALINE PHOSPHATASE 101 U/L (50-136); ANION GAP 8 mmol/L (7-16); AST,SGOT 27 U/L (15-37); BILIRUBIN,TOTAL 1.1 mg/dL (0.0-1.0); BLOOD UREA NITROGEN 16 mg/dL (9-20); C-REACTIVE PROTEIN 8.5 mg/dL (0.0-0.9); CALCIUM 8.9 mg/dL (8.4-10.2); CARBON DIOXIDE 21 mmol/L (22-30); CHLORIDE 104 mmol/L (98-107); CREATININE, serum 1.05 mg/dL (0.66-1.25); GLUCOSE 111 mg/dL (74-106); LIPASE 17 U/L (23-300); POTASSIUM 3.7 mmol/L (3.4-5.0); SODIUM 133 mmol/L (137-145); TOTAL PROTEIN 7.2 gm/dL (6.4-8.2)
[2018-04-27 01:50] LABS: TROPONIN-I < 0.012 ng/mL (0.000-0.035)
[2018-04-27 01:57] LABS: BAND 37 % (0-10); BASOPHIL 1 % (0-2); LYMPHOCYTE 12 % (20.0-51.0); NEUTROPHILS 38 % (42.0-75.2); PLATELET ESTIMATE NORMAL (NORMAL)
--- NOTE | 2018-04-27 05:45 | NUR ---
Pt. arrived to the floor at this time. Pt. is A&OX3. Pt. denies pain, call light within reach.
--- NOTE | 2018-04-27 08:00 | NUR ---
Patient in bed resting. Alert and oriented x 3. Family at bedside. Denies pain at this time. Denie further needs at this time.
--- NOTE | 2018-04-27 12:06 | NUR ---
Dr. Rubio in to see patient.
--- NOTE | 2018-04-27 14:12 | NUR ---
JACKELYN met with the patient with the patient and his [id number], Rupal to discuss a discharge plan. The patient is hard of hearing, Rupal answered some of the questions. The patient lives in [place] with Rupal. The patient has a cane and a walker. The patient reports he has [facility] services, due to a recent hospital stay and does want to continue services with [facility]. The patient's PCP is Dr. Denis Simon. The patient does have advanced directives in the EMR. Upon discharge the patient plans to return home with Rupal. JACKELYN will continue to follow.
--- NOTE | 2018-04-27 17:56 | NUR ---
Patient has rested though the day. Continues to deny pain. Has been up to restoom x3. Stand by assist with walker and gait belt. Stool appears liquid and bloody. Notified Dr. Rubio of bloody stool and negative C-diff. Order entered for [facility]. Will maintain patient on contact precautions until notified otherwise by ID. in room through day. Denies further needs at this time. Will report off to bleacher sulfite pulp.
[2018-04-27 19:07] LABS: HEMATOCRIT 37.7 % (42.0-52.0); HEMOGLOBIN 12.3 g/dl (13.5-18.0)
--- NOTE | 2018-04-27 23:11 | NUR ---
PT IN BED. NO c/o N/V. PT DENIED PAIN INITIALLY THEN REPORTED SOME BACK PAIN. 1 PERCOCET ADMIN. PT HAS HAD ONE SMALL LOOSE B.M. PT FLUSHED BEFORE IT WAS SEEN.
[2018-04-28 03:45] VITALS: BP 116/65; PULSE 67
--- NOTE | 2018-04-28 06:47 | NUR ---
PT IN BED. NO c/o N/V. PT HAS HAD A FEW LOOSE, GREENISH STOOLS.
[2018-04-28 06:59] VITALS: BP 115/84; PULSE 69; TEMP 97.8
[2018-04-28 07:42] LABS: BASO % 0.3 % (0.0-2.0); EOS # 0.4 (0.0-0.7); EOS % 3.1 % (0-4.0); GRAN % 74.9 % (42.2-75.2); HEMATOCRIT 38.6 % (42.0-52.0); HEMOGLOBIN 12.7 g/dl (13.5-18.0); LYMPH # 1.3 (1.2-3.4); LYMPH % 11.2 % (20.0-51.0); MEAN CELL VOLUME 97 fl (80.0-100.0); MEAN CORPUSCULAR HEMOGLOBIN 32 pg (27.0-31.0); MEAN CORPUSCULAR HGB CONC 33 g/dl (33.0-37.0); MEAN PLATELET VOLUME 9.9 fl (7.4-10.4); MONO # 1.2 (0.1-0.6); MONO % 9.7 % (1.7-9.3); PLATELET COUNT 207 K/mm3 (130-400)
[2018-04-28 07:51] LABS: CALCIUM 8.7 mg/dL (8.4-10.2); CREATININE, serum 0.84 mg/dL (0.66-1.25); POTASSIUM 3.8 mmol/L (3.4-5.0)
[2018-04-28 10:59] VITALS: BP 123/57; PULSE 70; TEMP 97.3
[2018-04-28 17:10] VITALS: BP 112/54; PULSE 70; TEMP 97.8
--- NOTE | 2018-04-28 18:00 | NUR ---
No complaints of pain. Ambulatory in room with standby assist. Diet advanced to general. Ate well. Stated less diarrhea today.
[2018-04-28 19:41] VITALS: BP 124/57; PULSE 71; TEMP 98.2
[2018-04-29 00:08] VITALS: BP 131/68; PULSE 73; TEMP 98.3
[2018-04-29 04:14] VITALS: BP 138/76; PULSE 79; TEMP 97.7
--- NOTE | 2018-04-29 05:13 | NUR ---
RESTING QUIETLY MOST OF NIGHT. NO N/V. PT PASSING GAS. PT HAS ONLY HAD ONE SMALL STOOL THIS SHIFT. IT WAS LOOSE BUT NOT WATERY. PT AFEBRILE.
[2018-04-29 06:12] LABS: BASO # 0.1 (0.0-0.2); BASO % 0.6 % (0.0-2.0); EOS # 0.4 (0.0-0.7); EOS % 4.5 % (0-4.0); GRAN # 6.3 (1.4-6.5); GRAN % 70.1 % (42.2-75.2); HEMATOCRIT 37.7 % (42.0-52.0); HEMOGLOBIN 12.5 g/dl (13.5-18.0); LYMPH # 1.2 (1.2-3.4); LYMPH % 13.2 % (20.0-51.0); MEAN CELL VOLUME 95 fl (80.0-100.0); MEAN CORPUSCULAR HEMOGLOBIN 31 pg (27.0-31.0); MEAN CORPUSCULAR HGB CONC 33 g/dl (33.0-37.0); MEAN PLATELET VOLUME 10.2 fl (7.4-10.4); MONO % 10.6 % (1.7-9.3); PLATELET COUNT 208 K/mm3 (130-400); RED BLOOD COUNT 3.99 M/mm3 (4.20-5.60)
[2018-04-29 06:31] LABS: CALCIUM 8.6 mg/dL (8.4-10.2); CREATININE, serum 0.9 mg/dL (0.66-1.25); POTASSIUM 3.6 mmol/L (3.4-5.0)
[2018-04-29 07:31] VITALS: BP 130/86; PULSE 69; TEMP 97.5
--- NOTE | 2018-04-29 07:56 | NUR ---
Patient sitting up in chair. He had breakfast this am & tolerated well. Patient is very hard of hearing making communication difficulty at times. He reports pain relief up in the chair, back was sore from lying in bed. He denies SOB, states he is breathing well. Will closely monitor
[2018-04-29] MEDS ORDERED: VANCOCIN H125 MG/CAP PO (10:49)
--- NOTE | 2018-04-29 11:35 | NUR ---
SW attended clinical rounds and met with patient and his significant, Rupal, other afterwards. Patient will discharge today. Patient and Rupal will continue receiving services from [facility]. SW faxed discharge orders.
[2018-04-29 12:06] VITALS: BP 136/63; PULSE 68; TEMP 97.7
--- NOTE | 2018-04-29 12:13 | NUR ---
Patient ready for discharge. Hospitalist team rounded & orders obtained. Discharge paperwork reviewed with patient & his . They varbalized understanding & deny questions or concerns. INt DC. They will cone picker vancomycin script at pharmacy, medication list reviewed with last dose taken. Patient showered with EXTRUSION DIE CORRECTOR assisted & dressed warmly for discharge home. Patient wheeled out with all belongigns.
== END 2018-04-29 12:39 | disposition home health service (06) | DRG 373 ==
LOC: COL.ER 00:55 → SURG 04:17
PROVIDERS: Emergency Medicine; Hospitalist; Nurse Practitioner Family; ADMIT Internal Medicine
DX: A04.71 Enterocolitis due to Clostridium difficile, recurrent (principal); Z66 Do not resuscitate; F32.9 Major depressive disorder, single episode, unspecified; E03.9 Hypothyroidism, unspecified; N40.1 Benign prostatic hyperplasia with lower urinary tract symptoms; R33.8 Other retention of urine
CPT/HCPCS: 99222-AI; 99232-AI; 99239; J7030; Q9967

== ENCOUNTER → 2018-05-02 | Outpatient (CLI) | payer MEDICARE, BC ==
[~2018-05-02] MED LIST changes: +ROXICODONE 55 MG/TAB PO
== END ==
LOC: BHSO 12:38
DX: F33.42 Major depressive disorder, recurrent, in full remission (principal)
CPT/HCPCS: G0463

== ENCOUNTER → 2019-06-02 | Outpatient (CLI) | payer MEDICARE, BC ==
[2019-06-02 16:59] LABS: COLLECTION METHOD CLEAN CATCH
[2019-06-02 17:04] LABS: HEMATOCRIT 40.8 % (42.0-52.0); HEMOGLOBIN 13.3 g/dl (13.5-18.0); MEAN CELL VOLUME 97 fl (80.0-100.0); MEAN CORPUSCULAR HEMOGLOBIN 32 pg (27.0-31.0); MEAN CORPUSCULAR HGB CONC 33 g/dl (33.0-37.0); MEAN PLATELET VOLUME 9.7 fl (7.4-10.4); PLATELET COUNT 246 K/mm3 (130-400); RED BLOOD COUNT 4.21 M/mm3 (4.20-5.60); REDCELL DISTRIBUTION WIDTH-CV 15.2 % (11.5-14.5)
[2019-06-02 17:08] LABS: PH 5 (5-8); SQUAMOUS EPITHELIAL None Seen /hpf; URINE APPEARANCE Clear; URINE BACTERIA None Seen /hpf; URINE BILIRUBIN Negative (NEGATIVE); URINE BLOOD 1+ (NEGATIVE); URINE COLOR Yellow; URINE GLUCOSE Negative (NEGATIVE); URINE KETONE Negative (NEGATIVE); URINE LEUKOCYTE ESTERASE Negative (NEGATIVE); URINE NITRATE Negative (NEGATIVE); URINE PROTEIN(semi-quant) Negative (NEGATIVE); URINE RBC 0-2 /hpf; URINE UROBILINOGEN Negative (NEGATIVE); URINE WBC 0-2 /hpf
== END ==
LOC: ZCOL.LAB 16:25
PROVIDERS: Family Medicine
DX: G20 Parkinson's disease (principal); F02.81 Dementia in other diseases classified elsewhere, unspecified severity, with behavioral disturbance

== ENCOUNTER → 2019-07-10 | Outpatient (CLI) | payer MEDICARE, BC | LOC: COL.RAD 13:13 | DX: M47.816 Spondylosis without myelopathy or radiculopathy, lumbar region (principal); M51.26 Other intervertebral disc displacement, lumbar region; M48.061 Spinal stenosis, lumbar region without neurogenic claudication ==

== ENCOUNTER → 2019-08-18 | Outpatient (CLI) | payer MEDICARE, BC ==
[~2019-08-18] MED LIST changes: +ABILIFY 10MG TA10 MG PO; +ABILIFY5 MG; +ARICEPT10 MG PO; +ELIQUIS 5MG PO; +FLORAJEN A20 Billion CHEW; +MASON NATURAL2000 IU PO; +MIRAPEX0.5 MG PO; +NAMENDA 10MG TA10 MG PO; +REFRESH TEARS 330 ML OP; +SINEMET 25/101 UDTAB PO; +SYMMETREL100 M1 PO; +SYSTANE 0.4%-0.1 SOL OP
== END | disposition still patient (30) ==
LOC: COL.RAD 07:15
DX: J39.8 Other specified diseases of upper respiratory tract (principal); J84.9 Interstitial pulmonary disease, unspecified; N28.89 Other specified disorders of kidney and ureter
CPT/HCPCS: Q9967

== ENCOUNTER 2019-08-23 00:46 | Inpatient (IN) | payer MEDICARE, BC ==
[2019-08-23] VITALS (250 sets, daily range): BP systolic 109–123; BP diastolic 45–63; PULSE 80; TEMP 97.6–98.7; O2SAT 88–98
[~2019-08-23] VITALS: Ht 182.9 cm; Wt 108.9 kg
[~2019-08-23 00:46] MED LIST changes: -ABILIFY 10MG TA10 MG PO; -ABILIFY5 MG; -ARICEPT10 MG PO; -ELIQUIS 5MG PO; -FLORAJEN A20 Billion CHEW; -MASON NATURAL2000 IU PO; -MIRAPEX0.5 MG PO; -NAMENDA 10MG TA10 MG PO; -REFRESH TEARS 330 ML OP; -SINEMET 25/101 UDTAB PO; -SYMMETREL100 M1 PO; -SYSTANE 0.4%-0.1 SOL OP
[2019-08-23 01:15] LABS: ARTERIAL BLD GAS O2 SATURATION 96.2 % (92-100); ARTERIAL BLD GAS TCO2 CT 25.7; ARTERIAL BLOOD GAS BASE EXCESS 0.1 (-2-2); ARTERIAL BLOOD GAS HCO3 24.5 meq/L (22-26); ARTERIAL BLOOD GAS PCO2 39.2 mmHg (35-45); ARTERIAL BLOOD GAS PO2 80.3 mmHg (80-100); ARTERIAL BLOOD GAS pH 7.41 (7.35-7.45)
[2019-08-23 01:41] LABS: HEMATOCRIT 39.9 % (42.0-52.0); HEMOGLOBIN 12.8 g/dl (13.5-18.0); MEAN CELL VOLUME 97 fl (80.0-100.0); MEAN CORPUSCULAR HEMOGLOBIN 31 pg (27.0-31.0); MEAN CORPUSCULAR HGB CONC 32 g/dl (33.0-37.0); MEAN PLATELET VOLUME 9.5 fl (7.4-10.4); PLATELET COUNT 306 K/mm3 (130-400); RED BLOOD COUNT 4.11 M/mm3 (4.20-5.60)
[2019-08-23 01:52] LABS: ALANINE AMINOTRANSFERASE 9 U/L (4-49); ALBUMIN 3.8 gm/dL (3.5-5.0); ALKALINE PHOSPHATASE 164 U/L (50-136); ANION GAP 9 mmol/L (7-16); AST,SGOT 32 U/L (15-37); BILIRUBIN,TOTAL 0.7 mg/dL (0.0-1.0); BLOOD UREA NITROGEN 15 mg/dL (9-20); CALCIUM 9.6 mg/dL (8.4-10.2); CARBON DIOXIDE 26 mmol/L (22-30); CHLORIDE 102 mmol/L (98-107); CREATININE, serum 1.03 (0.66-1.25); GLUCOSE 133 mg/dL (74-106); POTASSIUM 4.1 mmol/L (3.4-5.0); SODIUM 137 mmol/L (137-145); TOTAL PROTEIN 8.8 gm/dL (6.4-8.2)
[2019-08-23 02:04] LABS: TROPONIN-I < 0.012 ng/mL (0.000-0.035)
[2019-08-23] MEDS ORDERED: SINEMET 25/101 UDTAB PO (02:06)
[2019-08-23] MEDS ORDERED: MIRAPEX0.5 MG PO (02:07)
[2019-08-23] MEDS ORDERED: NAMENDA 10MG TA10 MG PO (02:07)
[2019-08-23] MEDS ORDERED: ABILIFY 10MG TA10 MG PO (02:08)
[2019-08-23] MEDS ORDERED: ABILIFY5 MG (02:09)
[2019-08-23] MEDS ORDERED: ARICEPT10 MG PO (02:09)
[2019-08-23] MEDS ORDERED: ELIQUIS 5MG PO (02:30)
[2019-08-23] MEDS ORDERED: FLORAJEN A20 Billion CHEW (02:31)
[2019-08-23 02:45] LABS: ANISOCYTOSIS 1+; BAND 13 % (0-10); EOSINOPHIL 1 % (0-4); LYMPHOCYTE 4 % (20.0-51.0); METAMYELOCYTE 2 % (0-0); NEUTROPHILS 71 % (42.0-75.2); PLATELET ESTIMATE NORMAL (NORMAL)
[2019-08-23 02:47] LABS: TEAR DROP CELLS 1+
[2019-08-23] MEDS ORDERED: MASON NATURAL2000 IU PO (04:19)
[2019-08-23] MEDS ORDERED: SYMMETREL100 M1 PO (04:20)
[2019-08-23] MEDS ORDERED: REFRESH TEARS 330 ML OP (04:21)
[2019-08-23] MEDS ORDERED: SYSTANE 0.4%-0.1 SOL OP (04:21)
--- NOTE | 2019-08-23 04:49 | NUR ---
RECEIVED REPORT FROM JAMES SINCLAIR IN ER. AWAITING ARRIVAL TO ICU 1.
--- NOTE | 2019-08-23 05:30 | NUR ---
PT ARRIVES VIA STRETCHER ON 10L VIA OXYMASK. PT TRANSFERRED TO ICU BED AND PLACED ON BEDSIDE CONTINUOUS MONITOR. BUT ABLE TO MOVE SOME BUT DOES APPEAR TO BE WEAK. COVID SWAB COMPLETED PRIOR TO LETTING S/O HANNA INTO ROOM. CALL LIGHT EDUCATION GIVEN, VERBALIZED UNDERSTANDING. VSS.
[2019-08-23 06:52] LABS: INR 1.5 (0.8-3.0); PROTHROMBIN TIME 17.1 SECONDS (9.7-12.8)
[2019-08-23 09:37] LABS: COLLECTION METHOD CLEAN CATCH
[2019-08-23 09:46] LABS: PH 5 (5-8); SQUAMOUS EPITHELIAL None Seen /hpf; URINE APPEARANCE Clear; URINE BACTERIA None Seen /hpf; URINE BILIRUBIN Negative (NEGATIVE); URINE BLOOD 1+ (NEGATIVE); URINE COLOR Yellow; URINE GLUCOSE Negative (NEGATIVE); URINE KETONE Negative (NEGATIVE); URINE LEUKOCYTE ESTERASE Negative (NEGATIVE); URINE NITRATE Negative (NEGATIVE); URINE PROTEIN(semi-quant) Negative (NEGATIVE); URINE RBC 0-2 /hpf; URINE UROBILINOGEN Negative (NEGATIVE)
--- NOTE | 2019-08-23 10:26 | NUR ---
Covid test negative. Pt placed on standard precautions.
--- NOTE | 2019-08-23 13:21 | NUR ---
Plan:To return home with partner Rupal Pelaez . Assessment: Patient asleep, Assessment completed with caregiver/DPOA. Caregiver(CG), reports that that patient resides in home locally. Patient require mostly TT24 care. CG reports that [facility] home health comes to the home 1x a month to provide PT/OT.CG reports that they have hired external help from [facility] as a Respite Smoke Jumper who supports with cleaning, light cooking, and bathing. CG reports that it is starting to become difficult to provide the support but maintains that the patient will be at home. CG reports that the PCP is Dr. Barksdale and they use [facility] for medications and obtains them without difficulty. Patient is reported to have a walker, chair lift, comode, hsp bed, and lift to help transport into truck. Patient has an inogen prt O2 at 2 liters. CG indicated that she thinks that he may need more oxygen. Patient is reported to not be able to walk. CG reports that she provides transportation. Care concerns is the need for increasing support to the CG for patient and O2 adjustment. Action: JACKELYN educated CG on community supports. JACKELYN faxed update request to [facility] for increasing services. JACKELYN discussed with CG and Faxed referral to [facility] for additional supports to family for care. JACKELYN will continue to follow client care for additional concerns and supports.
--- NOTE | 2019-08-23 17:04 | NUR ---
Report called to medical. Pt to room 310 via bed acc by sig other/MARILYN Cummings. Oxygen now at 4L OM SPO2 90% c activity. 92-94% c rest. Able to swallow pills with unthickened water via straw sitting up at 90 degrees without any gagging/choking.
--- NOTE | 2019-08-23 17:42 | NUR ---
Patient came up from ICU, he is sleepy, could not access orientation or alertness. 2+ edema on bilateral extremity. patient came up with Zoila, significant other. on . report given to JAMES Jaramillo.
--- NOTE | 2019-08-23 21:15 | NUR ---
Initial shift assessment done- pt has been sleeping for past couple hours- awake now- oriented to person/place and approx time-- drowsy,, VSS, o2 sats 94% on 3L per mask, was incontinent of urine- bed changed, cleaned up- repositioned in bed --did eat a vanilla pudding w/nurse assisting, denies pain/SOB-- did fall right back to sleep.
--- NOTE | 2019-08-23 21:30 | NUR ---
Talked with Scarlett DOBBINS about pts night meds- looks like meds on days were not given till close to 4 pm-- many are BID--ok with Anahy to give night meds at [facility]
[2019-08-24 00:01] VITALS: BP 114/50; PULSE 80; TEMP 98.1
[2019-08-24 05:00] VITALS: BP 101/49; PULSE 91; TEMP 97.8
--- NOTE | 2019-08-24 06:36 | NUR ---
Pt did sleep fairly well last night- was incontinent of urine/stool x2 this shift and then did use the urinal for 200cc urine this morning--VSS, o2 sats 95% om 3L/mask-- pt states the mask is bothering him-- will switch to NC and see how he does-
[2019-08-24 07:07] LABS: BASO # 0.1 (0.0-0.2); BASO % 0.5 % (0.0-2.0); EOS # 0.5 (0.0-0.7); EOS % 3.9 % (0-4.0); GRAN # 9.4 (1.4-6.5); HEMATOCRIT 38.8 % (42.0-52.0); HEMOGLOBIN 12.6 g/dl (13.5-18.0); LYMPH # 0.8 (1.2-3.4); LYMPH % 6.5 % (20.0-51.0); MEAN CELL VOLUME 98 fl (80.0-100.0); MEAN CORPUSCULAR HEMOGLOBIN 32 pg (27.0-31.0); MEAN CORPUSCULAR HGB CONC 33 g/dl (33.0-37.0); MONO # 1.2 (0.1-0.6); MONO % 9.9 % (1.7-9.3); PLATELET COUNT 313 K/mm3 (130-400); RED BLOOD COUNT 3.98 M/mm3 (4.20-5.60)
[2019-08-24 07:21] LABS: ALBUMIN 3.6 gm/dL (3.5-5.0); BILIRUBIN,TOTAL 1.1 mg/dL (0.0-1.0); CALCIUM 9.6 mg/dL (8.4-10.2); CREATININE, serum 0.93 (0.66-1.25); POTASSIUM 4.1 mmol/L (3.4-5.0); TOTAL PROTEIN 8.5 gm/dL (6.4-8.2)
[2019-08-24 08:15] VITALS: BP 118/47; PULSE 87; TEMP 98
--- NOTE | 2019-08-24 09:15 | NUR ---
PATIENT ASSESSMENT COMPLETED. TOLERATED BREAKFAST WELL WITH BEING FED. HE ALSO WAS ABLE TO SWALLOW AM PILLS WHOLE WITH VANILLA PUDDING. DOES NOT COUGH BUT DOES GET A LITTLE SHORT OF BREATH. DRINKS THIN LIQUIDS WITH STRAW WITHOUT DIFFICULTY.
--- NOTE | 2019-08-24 11:30 | NUR ---
Plan: Currently no plan. SW corresponded with Hospitalist who indicated that patient will cotninue to be monitored. Care Support, EMR and DPOA is Rupal [phone]. They reside in [facility]. Assess: SW met with patient with life supervisor taping at is bedside. Patient was not able to tolerate interview, and so SW spoke wtih patients supervisor taping Sun. Patient utilizes a walker, transport chair, toilet riser, and a hospital bed. Patient also utilizes oxygen, he was using 2 liters at home, however supervisor taping indicated he has been using 3.5-4 during his hospital stay. Patients PCP is Dr. Degroot, and he does not have any upcoming appointments. [facility]. Patient currently received PT/Ot services from [facility], with nursing care once, and he received additional support clean up, care from [facility]. Action: SW will continue to monitor.
[2019-08-24 12:05] VITALS: BP 106/58; PULSE 91; TEMP 98.1
--- NOTE | 2019-08-24 16:08 | NUR ---
PATIENT HAD XLARGE WATERY DIARRHEA. CLEANED AND SAMPLE IS COLLECTED. NEW ORDERS
[2019-08-24 17:19] VITALS: BP 109/57; PULSE 89; TEMP 98.3
--- NOTE | 2019-08-24 19:20 | NUR ---
Received report from Tessy. Seen patient awake lying in bed. Significant other on the bedside. With INT on right hand. With bilateral hearing aids. Patient on comfort care. On O2 at 5lpm via oxymask.
[2019-08-24 19:35] LABS: CLOSTRIDIUM DIFF A/B NEG; CLOSTRIDIUM DIFF A/B INTERP No C.diff present
--- NOTE | 2019-08-24 20:00 | NUR ---
Patient was repositioned. Pillow on his left back. SCD on both lower extremities.
[2019-08-24 20:14] VITALS: BP 116/53; BP 98/38; PULSE 86; TEMP 98.6
--- NOTE | 2019-08-25 00:30 | NUR ---
Patient had a large loose brown stools. Changed patient's briefs, gown and bed linens with the help of BRAYAN Faustin. Repositioned patient on supine position. He denies pain.
[2019-08-25 01:05] VITALS: PULSE 82
--- NOTE | 2019-08-25 02:19 | NUR ---
Repositioned patient. Pillow placed on his right side. Not in distress. Denies pain.
[2019-08-25 05:44] VITALS: PULSE 97
--- NOTE | 2019-08-25 06:00 | NUR ---
Repositioned patient on supine. Changed his diapers and pads with the help of Ramin. Will endorse to day shift nurse.
--- NOTE | 2019-08-25 11:27 | NUR ---
Patient is sleepy, easy to arouse. denies any pain. body is clammy. appear weak. On 5L of O2 at 92% oxygen saturation. Had two loose large stool this am. Zoila Significant other at bedside visiting.
--- NOTE | 2019-08-25 11:53 | NUR ---
Patient is discharging with Home health and hospice care today. INT discontinued.
[2019-08-25] MEDS ORDERED: RT Albuterol HFA MDI IH (11:56)
[2019-08-25] MEDS ORDERED: ROXANOL 20MG20 MG/ML SL (11:57)
[2019-08-25] MEDS ORDERED: ATIVAN 1MG T1 MG/TAB PO (11:58)
[2019-08-25] MEDS ORDERED: IMODIUM 2MG CAPS2 MG PO (12:03)
--- NOTE | 2019-08-25 12:55 | NUR ---
Welt Treater attended clinical rounds with the team and patient has been put on comfort measures. JACKELYN followed up with patient's , Rupal to discuss discharge planning as Rupal wants patient to return home. Rupal reports they have a hospital bed, transport chair, and oxygen set up at home. Rupal would like to have a referral faxed to Homecare [facility] Hospice. JACKELYN contacted Nataliia with [facility] and faxed referral. Nataliia reviewed referral and advised they can admit patient today at 1400. JACKELYN met with Rupal again who advised patient would not be able to transport home by private car. JACKELYN contacted [facility] and set up transport time for 1330. JACKELYN provided transport time to Rupal Eduardo, Hospitalist, and Nataliia. JACKELYN placed completed EMS forms on chart. JACKELYN faxed discharge orders and prescriptions to Nataliia at [facility]. No additional needs at this time.
--- NOTE | 2019-08-25 13:55 | NUR ---
Patient discharged with new medication Roxanol 20mg/1mL Q1H, RT albuterol, ativan 1mg.
== END 2019-08-25 13:57 | disposition hospice, home (50) | DRG 871 ==
LOC: COL.ER 00:46 → ICU 05:31 → MEDICAL 17:00
PROVIDERS: Emergency Medicine; Nurse Practitioner Family; Physician Assistant; ADMIT Family Medicine
DX: A41.9 Sepsis, unspecified organism (principal); J96.21 Acute and chronic respiratory failure with hypoxia; J84.10 Pulmonary fibrosis, unspecified; G62.9 Polyneuropathy, unspecified; G20 Parkinson's disease; E03.9 Hypothyroidism, unspecified; N40.0 Benign prostatic hyperplasia without lower urinary tract symptoms; Z66 Do not resuscitate; Z51.5 Encounter for palliative care; F02.80 Dementia in other diseases classified elsewhere, unspecified severity, without behavioral disturbance, psychotic disturbance, mood disturbance, and anxiety; F32.9 Major depressive disorder, single episode, unspecified; K63.89 Other specified diseases of intestine; B96.20 Unspecified Escherichia coli [E. coli] as the cause of diseases classified elsewhere; Z99.81 Dependence on supplemental oxygen; Z86.718 Personal history of other venous thrombosis and embolism; Z79.01 Long term (current) use of anticoagulants; Z20.828 Contact with and (suspected) exposure to other viral communicable diseases
CPT/HCPCS: 99222-AI; 99223-AI; 99232-AI; 99239; J0456; J2543; J7050; Q9967